=== PATIENT | male | born 1955 | race Caucasian/White ===

== ENCOUNTER 2021-12-11 15:57 | Emergency (ER) | payer MEDICAID ==
[~2021-12-11] VITALS: Ht 167.6 cm; Wt 86.2 kg
[2021-12-11 16:02] VITALS: BP 184/108
[2021-12-11 18:17] VITALS: BP 180/100
== END 2021-12-11 18:27 | disposition home or self-care (01) ==
LOC: MED 15:57
DX: Z43.3 Encounter for attention to colostomy (principal); Z98.890 Other specified postprocedural states
CPT/HCPCS: 99283

== ENCOUNTER 2022-01-25 07:55 | Emergency (ER) | payer MEDICAID ==
[~2022-01-25] VITALS: Ht 157.5 cm; Wt 82.6 kg
[~2022-01-25 07:55] MED LIST: ATOR10TA PO; HYDR-1098 PO; L. A1TAB16 PO; LACT500C2 PO; MULT-2527 PO
[2022-01-25 08:01] VITALS: BP 184/87
--- NOTE | 2022-01-25 08:24 | NUR ---
DR OSBORNE IN CHAIR FOR JAZLYNAL
--- NOTE | 2022-01-25 08:30 | NUR ---
66 Y/O C/O OF DISTENTION IN COLOSTOMY SITE IN LEFT LOWER ABD, NOTED COLOSTOMY BAG IN OPEN AND LEAKING. COLOSTOMY STOMA RED IN COLOR NKA PMH: COLOSTOMY, HTN
--- NOTE | 2022-01-25 08:31 | NUR ---
COLOSTOMY BAG CHANGED IN G[place]
[2022-01-25 08:40] VITALS: BP 152/88
--- NOTE | 2022-01-25 08:41 | NUR ---
Patient discharged with v/s stable. Written and verbal after care instructions given and explained. Patient verbalized understanding. Ambulatory with steady gait. All questions addressed prior to discharge. Advised to follow up with PMD.
== END 2022-01-25 08:41 | disposition home or self-care (01) ==
LOC: MED 07:55
DX: Z46.89 Encounter for fitting and adjustment of other specified devices (principal); I10 Essential (primary) hypertension; Z79.899 Other long term (current) drug therapy; Z90.49 Acquired absence of other specified parts of digestive tract; Z85.9 Personal history of malignant neoplasm, unspecified
CPT/HCPCS: 99281

== ENCOUNTER 2022-02-13 15:15 | Emergency (ER) | payer MEDICAID ==
[~2022-02-13] VITALS: Ht 160 cm; Wt 78.0 kg
[2022-02-13 15:27] VITALS: BP 107/56
--- NOTE | 2022-02-13 15:31 | NUR ---
PT TRANSPORTED TO BED 11 VIA [facility].
--- NOTE | 2022-02-13 15:32 | NUR ---
NOTED DARK BROWN COLORED FECAL MATTER IN PT COLOSTOMY BAG, DR RUIZ INFORMED FOR EVAL, PER PT HE HAS IRON AND THE FECES IS NORMALLY THAT COLOR
--- NOTE | 2022-02-13 15:34 | NUR ---
66 Y/O MALE BIBA FROM [facility] PER EMS FACILITY STATED THAT THE PATIENT WAS LIFTING SOMETHING YESTERDAY AND IS NOW C/O OF RIGHT KNEE PAIN. PT IS A/OX4, STATED THAT HE HAS BEEN HAVING RIGHT KNEE PAIN X2 WEEKS. AMBULATORY WITH CANE. NO SWELLING NOTED ON THE AREA, NO BRUISING. NKA PMH: LIVER CIRRHOSIS, HDL, HTN, CVA, COLOSTOMY IN PLACE
--- NOTE | 2022-02-13 15:55 | NUR ---
KANIKA MARTINEZ AT BEDSIDE
[2022-02-13] MEDS ORDERED: KETOROLAC 30 MG/ML VIAL IM ONE (16:00)
--- NOTE | 2022-02-13 16:16 | NUR ---
US AT BEDSIDE
--- NOTE | 2022-02-13 17:07 | NUR ---
PT AMBULATED TO BATHROOM WITH CANE
[2022-02-13] MEDS ORDERED: NAPR-1704 PO (17:42)
[2022-02-13 17:57] VITALS: BP 108/57
== END 2022-02-13 17:57 | disposition home or self-care (01) ==
LOC: MED 15:15
DX: S86.811A Strain of other muscle(s) and tendon(s) at lower leg level, right leg, initial encounter (principal); I10 Essential (primary) hypertension; Z86.73 Personal history of transient ischemic attack (TIA), and cerebral infarction without residual deficits; Z85.89 Personal history of malignant neoplasm of other organs and systems; Z98.890 Other specified postprocedural states; Z79.899 Other long term (current) drug therapy; X50.0XXA Overexertion from strenuous movement or load, initial encounter; Y93.89 Activity, other specified; Y92.89 Other specified places as the place of occurrence of the external cause; Y99.8 Other external cause status
CPT/HCPCS: 93971; 96372; 99284; J1885; Q0092

== ENCOUNTER 2022-02-27 09:55 | Inpatient (IN) | payer MEDICAID ==
[2022-02-27] VITALS (8 sets, daily range): BP systolic 93–155; BP diastolic 30–83
[~2022-02-27] VITALS: Ht 170.2 cm; Wt 79.4 kg
[~2022-02-27 09:55] MED LIST changes: +NAPR-1704 PO
[2022-02-27] MEDS ORDERED: PANTOPRAZOLE 40 MG INJ VIAL IVP ONE (10:35)
[2022-02-27] MEDS ORDERED: OCTREOTIDE ACETATE 1.25 MG in NACL 0.9% 250 ML IV SCH ×3 (10:35→13:45)
[2022-02-27] MEDS ORDERED: NACL 0.9% 250 ML IV ONE (10:35)
[2022-02-27] MEDS ORDERED: SUCCINYLCHOLINE CHLORIDE 200 MG/10 ML VIAL IVP ONE (11:20)
[2022-02-27] MEDS ORDERED: ETOMIDATE 20 MG/10 ML VIAL IVP ONE (11:20)
[2022-02-27 11:29] LABS: BASOPHILS # (AUTO) 0.1 K/uL (0.00-0.22); BASOPHILS % (AUTO) 0.4 % (0.0-2.0); EOSINOPHILS # (AUTO) 0.1 K/uL (0-0.4); EOSINOPHILS % (AUTO) 0.8 % (0.0-4.0); HEMATOCRIT 23.1 % (36-52); HEMOGLOBIN 7.4 g/dL (12.0-18.0); LYMPHOCYTES # (AUTO) 0.4 K/uL (2.0-11.5); LYMPHOCYTES % (AUTO) 2.2 % (20.5-51.1); MEAN CORPUSCULAR HEMOGLOBIN 29 pg (27-31); MEAN CORPUSCULAR HGB CONC 32 g/dL (33-37); MEAN CORPUSCULAR VOLUME 89.4 fL (80-94); MONOCYTES # (AUTO) 0.7 K/uL (0.8-1.0); MONOCYTES % (AUTO) 4.7 % (1.7-9.3); NEUTROPHILS # (AUTO) 14.6 K/uL (1.8-7.7); NEUTROPHILS % (AUTO) 91.9 % (42.2-75.2); PLATELET COUNT (AUTO) 581 K/uL (140-450); RED BLOOD CELL COUNT(AUTO) 2.58 MIL/uL (4.20-6.10); RED CELL DISTRIBUTION WIDTH 21.1 % (11.6-13.7); WHITE BLOOD COUNT (AUTO) 15.9 K/uL (4.8-10.8)
[2022-02-27 11:41] LABS: PROTHROMBIN TIME 10.4 secs (10.8-13.4)
[2022-02-27] MEDS ORDERED: NACL 0.9% 1,000 ML IV ONE ×2 (11:45→12:35)
[2022-02-27] MEDS ORDERED: MIDAZOLAM MDV 50 MG in NACL 0.9% 40 ML IV SCH (11:55)
[2022-02-27] MEDS ORDERED: MIDAZOLAM 5 MG/5 ML VIAL ONE (11:58)
[2022-02-27] MEDS ORDERED: MIDAZOLAM 5 MG/5 ML VIAL IV ONE (12:05)
[2022-02-27] MEDS: NOREPINEPHRINE 4 MG in DEXTROSE 5% 250 ML IV ONE ×2 (12:05→12:16)
[2022-02-27] MEDS: MIDAZOLAM MDV 100 MG in NACL 0.9% 80 ML IV PRN (12:10)
[2022-02-27 12:19] LABS: ANION GAP 36.7 (8-16); POTASSIUM 7.7 mmol/L (3.5-5.1)
[2022-02-27 12:20] LABS: CREATININE 9.6 mg/dL (0.6-1.3); TOTAL BILIRUBIN 0.3 mg/dL (0.0-1.0)
[2022-02-27 12:23] LABS: ALBUMIN 2.6 g/dL (3.4-5.0)
[2022-02-27] MEDS ORDERED: fentaNYL citrate 0.05 MG/ML VIAL ONE (12:24)
[2022-02-27] MEDS ORDERED: CALCIUM GLUC 1 GM/50 mL NS BAG 50 ML IV ONE (12:30)
[2022-02-27] MEDS ORDERED: INSULIN REGULAR, HUMAN 100 UNIT/ML VIAL IVP ONE (12:30)
[2022-02-27] MEDS ORDERED: ALBUTEROL 0.083% 2.5 MG/3 ML NEBU INH ONE (12:30)
[2022-02-27] MEDS ORDERED: fentaNYL citrate 0.05 MG/ML VIAL IVP ONE (12:30)
[2022-02-27] MEDS ORDERED: DEXTROSE 50% 50 ML SYR IVP ONE (12:30)
[2022-02-27] MEDS ORDERED: PROPOFOL 1000 MG/100 ML PREMIX 100 ML IV ONE ×2 (12:53→13:15)
[2022-02-27] MEDS ORDERED: ONDANSETRON 4 MG/2 ML VIAL IVP PRN ×2 (12:55→13:05)
[2022-02-27] MEDS ORDERED: MORPHINE SULFATE 2 MG/ML SYR IVP PRN ×2 (12:55→13:05)
[2022-02-27] MEDS ORDERED: DOCUSATE SODIUM 100 MG GELCAP PO PRN (13:05)
[2022-02-27] MEDS ORDERED: MAG SULF 2000 MG/WATER PREMIX 50 ML IV PRN (13:05)
[2022-02-27] MEDS ORDERED: ZOLPIDEM 10 MG TAB PO PRN (13:05)
[2022-02-27] MEDS ORDERED: ACETAMINOPHEN 325 MG TAB PO PRN (13:05)
[2022-02-27] MEDS ORDERED: POTASSIUM CHLORIDE 10 MEQ TABER PO PRN (13:05)
[2022-02-27] MEDS ORDERED: VANCOMYCIN PER PHARMACY MC PRN (13:20)
[2022-02-27] MEDS ORDERED: cefTRIAXone 1,000 MG VIAL ONE (13:22)
[2022-02-27] MEDS ORDERED: EPINEPHrine PFS 0.1 MG/ML SYR IVP ONE (13:25)
[2022-02-27] MEDS ORDERED: PIPERACILLIN/TAZOBACTAM 2.25 GM in DEXTROSE 5% 50 ML IV SCH (13:26)
[2022-02-27] MEDS ORDERED: PHENYLEPHRINE 10 MG in NACL 0.9% 250 ML IV PRN (13:50)
[2022-02-27] MEDS ORDERED: SODIUM BICARBONATE 8.4% PFS 50 MEQ/50 ML SYR IVP ONE (13:55)
[2022-02-27 14:06] LABS: APPEARANCE,URINE CLEAR (CLEAR); BILIRUBIN,URINE NEGATIVE (NEGATIVE); BLOOD, URINE TRACE-I (NEGATIVE); COLOR,URINE YELLOW (YELLOW); LEUKOCYTE ESTERASE ,URINE NEGATIVE (NEGATIVE); NITRITE, URINE NEGATIVE (NEGATIVE); PH,URINE 5.5 (5.0-9.0); UGLUCOSE TRACE (NEGATIVE)
[2022-02-27] MEDS ORDERED: SODIUM BICARBONATE 8.4% PFS 50 MEQ/50 ML SYR IVP SCH (14:15)
[2022-02-27] MEDS: fentaNYL citrate 1 MG in NACL 0.9% 80 ML IV PRN (14:34)
[2022-02-27] MEDS: SODIUM BICARBONATE 8.4% 150 MEQ in DEXTROSE 5% 1,000 ML IV SCH ×2 (14:44→21:57)
[2022-02-27] MEDS ORDERED: NOREPINEPHRINE 4 MG/4 ML VIAL IV ONE ×2 (14:44→17:50)
[2022-02-27 15:21] LABS: WBC,URINE 0-5 /HPF (0-5)
[2022-02-27 15:22] LABS: OTHER CASTS, URINE None Seen /LPF (None Seen)
[2022-02-27] MEDS ORDERED: VANCOMYCIN 1,000 MG in DEXTROSE 5% 250 ML IV SCH (15:30)
[2022-02-27] MEDS ORDERED: VANCOMYCIN 1,000 MG VIAL ONE (16:11)
[2022-02-27 17:51] LABS: BASOPHILS % (AUTO) 0.2 % (0.0-2.0); EOSINOPHILS # (AUTO) 0.1 K/uL (0-0.4); LYMPHOCYTES # (AUTO) 0.3 K/uL (2.0-11.5); LYMPHOCYTES % (AUTO) 2.1 % (20.5-51.1); MEAN CORPUSCULAR HEMOGLOBIN 28 pg (27-31); MEAN CORPUSCULAR HGB CONC 32 g/dL (33-37); MEAN CORPUSCULAR VOLUME 88.6 fL (80-94); MONOCYTES # (AUTO) 0.6 K/uL (0.8-1.0); MONOCYTES % (AUTO) 4.3 % (1.7-9.3); NEUTROPHILS # (AUTO) 12.8 K/uL (1.8-7.7); NEUTROPHILS % (AUTO) 92.4 % (42.2-75.2); PLATELET COUNT (AUTO) 493 K/uL (140-450); RED BLOOD CELL COUNT(AUTO) 2.14 MIL/uL (4.20-6.10); RED CELL DISTRIBUTION WIDTH 21.2 % (11.6-13.7); WHITE BLOOD COUNT (AUTO) 13.8 K/uL (4.8-10.8)
[2022-02-27 17:57] LABS: HEMATOCRIT 18.9 % (36-52)
[2022-02-27] MEDS: NOREPINEPHRINE 16 MG in DEXTROSE 5% 250 ML IV PRN (18:15)
[2022-02-27] MEDS: PHENYLEPHRINE 40 MG in NACL 0.9% 250 ML IV PRN (18:25)
[2022-02-27 19:42] LABS: ALBUMIN 2.6 g/dL (3.4-5.0); BILIRUBIN,DIRECT 0.1 mg/dL (0.0-0.3); TOTAL BILIRUBIN 0.4 mg/dL (0.0-1.0)
[2022-02-27] MEDS: PIPERACILLIN/TAZOBACTAM 2.25 GM in DEXTROSE 5% 50 ML IV SCH (21:58)
[2022-02-28] VITALS (21 sets, daily range): BP systolic 70–160; BP diastolic 38–100
[2022-02-28] MEDS: ACETAMINOPHEN 325 MG TAB PO PRN ×3 (00:18→17:43)
[2022-02-28 01:06] LABS: BASOPHILS % (AUTO) 0.3 % (0.0-2.0); EOSINOPHILS # (AUTO) 0.7 K/uL (0-0.4); EOSINOPHILS % (AUTO) 5.6 % (0.0-4.0); HEMATOCRIT 27.5 % (36-52); HEMOGLOBIN 9.5 g/dL (12.0-18.0); LYMPHOCYTES # (AUTO) 0.7 K/uL (2.0-11.5); LYMPHOCYTES % (AUTO) 5.3 % (20.5-51.1); MEAN CORPUSCULAR HEMOGLOBIN 28 pg (27-31); MEAN CORPUSCULAR HGB CONC 35 g/dL (33-37); MONOCYTES # (AUTO) 0.5 K/uL (0.8-1.0); MONOCYTES % (AUTO) 3.8 % (1.7-9.3); NEUTROPHILS # (AUTO) 10.9 K/uL (1.8-7.7); PLATELET COUNT (AUTO) 430 K/uL (140-450); RED BLOOD CELL COUNT(AUTO) 3.36 MIL/uL (4.20-6.10); WHITE BLOOD COUNT (AUTO) 12.8 K/uL (4.8-10.8)
[2022-02-28] MEDS: NOREPINEPHRINE 16 MG in DEXTROSE 5% 250 ML IV PRN ×2 (02:02→15:25)
[2022-02-28] MEDS: fentaNYL citrate 1 MG in NACL 0.9% 80 ML IV PRN ×2 (04:52→13:46)
[2022-02-28] MEDS: PIPERACILLIN/TAZOBACTAM 2.25 GM in DEXTROSE 5% 50 ML IV SCH ×3 (05:11→21:00)
[2022-02-28 05:42] LABS: BASOPHILS % (AUTO) 0.2 % (0.0-2.0); EOSINOPHILS # (AUTO) 0.3 K/uL (0-0.4); EOSINOPHILS % (AUTO) 2.4 % (0.0-4.0); HEMATOCRIT 25.2 % (36-52); HEMOGLOBIN 8.6 g/dL (12.0-18.0); LYMPHOCYTES # (AUTO) 0.5 K/uL (2.0-11.5); LYMPHOCYTES % (AUTO) 3.6 % (20.5-51.1); MEAN CORPUSCULAR HEMOGLOBIN 28 pg (27-31); MEAN CORPUSCULAR HGB CONC 34 g/dL (33-37); MEAN CORPUSCULAR VOLUME 80.9 fL (80-94); MONOCYTES # (AUTO) 0.8 K/uL (0.8-1.0); MONOCYTES % (AUTO) 6.2 % (1.7-9.3); NEUTROPHILS # (AUTO) 11.6 K/uL (1.8-7.7); NEUTROPHILS % (AUTO) 87.6 % (42.2-75.2); PLATELET COUNT (AUTO) 425 K/uL (140-450); RED BLOOD CELL COUNT(AUTO) 3.12 MIL/uL (4.20-6.10); RED CELL DISTRIBUTION WIDTH 18.4 % (11.6-13.7); WHITE BLOOD COUNT (AUTO) 13.3 K/uL (4.8-10.8)
[2022-02-28] MEDS: PHENYLEPHRINE 40 MG in NACL 0.9% 250 ML IV PRN (06:46)
[2022-02-28 06:51] LABS: ANION GAP 15.9 (8-16); CARBON DIOXIDE 28.9 mmol/L (21-32); CREATININE 2.9 mg/dL (0.6-1.3)
[2022-02-28 07:11] LABS: POTASSIUM 2.8 mmol/L (3.5-5.1)
[2022-02-28] MEDS: SODIUM BICARBONATE 8.4% 150 MEQ in DEXTROSE 5% 1,000 ML IV SCH (07:15)
[2022-02-28] MEDS ORDERED: KCL 20 MEQ/WATER INJ PREMIX 200 ML IV SCH (08:00)
[2022-02-28] MEDS: PANTOPRAZOLE 40 MG INJ VIAL IVP SCH ×4 (08:01→21:00)
[2022-02-28] MEDS: MIDAZOLAM MDV 100 MG in NACL 0.9% 80 ML IV PRN (08:03)
[2022-02-28] MEDS: DEXT 5% /NACL 0.9% 1,000 ML IV SCH (10:56)
[2022-02-28 14:19] LABS: ANION GAP 9.5 (8-16); CARBON DIOXIDE 33.1 mmol/L (21-32); CREATININE 2.3 mg/dL (0.6-1.3); POTASSIUM 3.6 mmol/L (3.5-5.1)
[2022-02-28] MEDS: DEXAMETHASONE 10 MG/ML VIAL IVP SCH (20:36)
[2022-03-01] VITALS (26 sets, daily range): BP systolic 91–166; BP diastolic 45–98
[2022-03-01] MEDS: DEXT 5% /NACL 0.9% 1,000 ML IV SCH ×4 (01:00→22:59)
[2022-03-01] MEDS: fentaNYL citrate 1 MG in NACL 0.9% 80 ML IV PRN ×2 (03:38→23:03)
[2022-03-01] MEDS: PIPERACILLIN/TAZOBACTAM 2.25 GM in DEXTROSE 5% 50 ML IV SCH ×3 (04:59→21:07)
[2022-03-01 05:42] LABS: BASOPHILS # (AUTO) 0.1 K/uL (0.00-0.22); BASOPHILS % (AUTO) 0.5 % (0.0-2.0); EOSINOPHILS # (AUTO) 0.3 K/uL (0-0.4); EOSINOPHILS % (AUTO) 2.5 % (0.0-4.0); HEMOGLOBIN 8.6 g/dL (12.0-18.0); LYMPHOCYTES # (AUTO) 0.2 K/uL (2.0-11.5); LYMPHOCYTES % (AUTO) 1.9 % (20.5-51.1); MEAN CORPUSCULAR HEMOGLOBIN 29 pg (27-31); MEAN CORPUSCULAR HGB CONC 35 g/dL (33-37); MEAN CORPUSCULAR VOLUME 82.8 fL (80-94); MONOCYTES # (AUTO) 0.1 K/uL (0.8-1.0); NEUTROPHILS # (AUTO) 10.7 K/uL (1.8-7.7); NEUTROPHILS % (AUTO) 94.1 % (42.2-75.2); PLATELET COUNT (AUTO) 408 K/uL (140-450); RED BLOOD CELL COUNT(AUTO) 3.01 MIL/uL (4.20-6.10); RED CELL DISTRIBUTION WIDTH 18.2 % (11.6-13.7); WHITE BLOOD COUNT (AUTO) 11.4 K/uL (4.8-10.8)
[2022-03-01 05:59] LABS: ANION GAP 10.1 (8-16); CARBON DIOXIDE 29.4 mmol/L (21-32); CREATININE 1.9 mg/dL (0.6-1.3); POTASSIUM 3.5 mmol/L (3.5-5.1)
[2022-03-01] MEDS ORDERED: VANCOMYCIN 1,000 MG in DEXTROSE 5% 250 ML IV SCH (08:00)
[2022-03-01] MEDS: PANTOPRAZOLE 40 MG INJ VIAL IVP SCH ×2 (08:17→21:07)
[2022-03-01] MEDS: DEXAMETHASONE 10 MG/ML VIAL IVP SCH (08:18)
[2022-03-01] MEDS ORDERED: DEXTROSE 50% 50 ML SYR IVP PRN (10:20)
[2022-03-01] MEDS: INSULIN LISPRO SLIDING SCALE 100 UNITS/ML VIAL SUBQ PRN ×2 (10:40→17:29)
[2022-03-01] MEDS: MIDAZOLAM MDV 100 MG in NACL 0.9% 80 ML IV PRN (10:45)
[2022-03-01] MEDS ORDERED: BLOOD GLUCOSE MONITORING 1 DEV DEV FS SCH (11:30)
[2022-03-01] MEDS: NOREPINEPHRINE 16 MG in DEXTROSE 5% 250 ML IV PRN (12:02)
[2022-03-01 12:08] LABS: HEPATITIS A ANTIBODY IGM Negative (Negative); HEPATITIS B CORE AB TOTAL Negative (Negative); HEPATITIS B SURFACE ANTIBODY Non Reactive (.); HEPATITIS B SURFACE ANTIGEN Negative (Negative)
[2022-03-01] MEDS: BLOOD GLUCOSE MONITORING 1 DEV DEV FS SCH ×2 (17:28→23:27)
[2022-03-02] VITALS (33 sets, daily range): BP systolic 94–156; BP diastolic 47–80
[2022-03-02] MEDS: PIPERACILLIN/TAZOBACTAM 2.25 GM in DEXTROSE 5% 50 ML IV SCH ×3 (06:35→20:58)
[2022-03-02] MEDS: BLOOD GLUCOSE MONITORING 1 DEV DEV FS SCH ×4 (06:35→23:55)
[2022-03-02 07:05] LABS: BASOPHILS # (AUTO) 0.1 K/uL (0.00-0.22); BASOPHILS % (AUTO) 0.7 % (0.0-2.0); EOSINOPHILS # (AUTO) 0.7 K/uL (0-0.4); EOSINOPHILS % (AUTO) 4.5 % (0.0-4.0); HEMOGLOBIN 7.4 g/dL (12.0-18.0); LYMPHOCYTES # (AUTO) 0.5 K/uL (2.0-11.5); LYMPHOCYTES % (AUTO) 3.2 % (20.5-51.1); MEAN CORPUSCULAR HEMOGLOBIN 29 pg (27-31); MEAN CORPUSCULAR HGB CONC 35 g/dL (33-37); MEAN CORPUSCULAR VOLUME 83.3 fL (80-94); MONOCYTES # (AUTO) 0.4 K/uL (0.8-1.0); MONOCYTES % (AUTO) 2.6 % (1.7-9.3); NEUTROPHILS # (AUTO) 13.6 K/uL (1.8-7.7); PLATELET COUNT (AUTO) 380 K/uL (140-450); RED BLOOD CELL COUNT(AUTO) 2.52 MIL/uL (4.20-6.10); RED CELL DISTRIBUTION WIDTH 18.9 % (11.6-13.7); WHITE BLOOD COUNT (AUTO) 15.3 K/uL (4.8-10.8)
[2022-03-02 08:07] LABS: ANION GAP 8.8 (8-16); CARBON DIOXIDE 29.5 mmol/L (21-32); CREATININE 1.3 mg/dL (0.6-1.3); POTASSIUM 3.3 mmol/L (3.5-5.1)
[2022-03-02] MEDS: DEXAMETHASONE 10 MG/ML VIAL IVP SCH (08:41)
[2022-03-02] MEDS: PANTOPRAZOLE 40 MG INJ VIAL IVP SCH ×2 (08:41→20:58)
[2022-03-02] MEDS: MIDAZOLAM MDV 100 MG in NACL 0.9% 80 ML IV PRN (09:00)
[2022-03-02] MEDS: VANCOMYCIN HCL 1.25 GM in DEXTROSE 5% 250 ML IV SCH (10:09)
[2022-03-02] MEDS ORDERED: KCL 20 MEQ/WATER INJ PREMIX 100 ML IV SCH (11:00)
[2022-03-02] MEDS: INSULIN LISPRO SLIDING SCALE 100 UNITS/ML VIAL SUBQ PRN ×2 (11:26→18:24)
[2022-03-02] MEDS: DEXT 5% /NACL 0.9% 1,000 ML IV SCH (11:36)
[2022-03-02] MEDS: POTASSIUM CHL 20 MEQ / DEXT 5% 1,000 ML IV SCH (14:38)
[2022-03-03] VITALS (34 sets, daily range): BP systolic 99–170; BP diastolic 59–84
[2022-03-03] MEDS: POTASSIUM CHL 20 MEQ / DEXT 5% 1,000 ML IV SCH ×3 (01:12→21:36)
[2022-03-03] MEDS: BLOOD GLUCOSE MONITORING 1 DEV DEV FS SCH ×3 (06:00→18:10)
[2022-03-03] MEDS: MIDAZOLAM MDV 100 MG in NACL 0.9% 80 ML IV PRN (06:03)
[2022-03-03] MEDS: PIPERACILLIN/TAZOBACTAM 2.25 GM in DEXTROSE 5% 50 ML IV SCH ×3 (06:04→21:36)
[2022-03-03 07:15] LABS: BASOPHILS % (AUTO) 0.1 % (0.0-2.0); EOSINOPHILS # (AUTO) 0.4 K/uL (0-0.4); EOSINOPHILS % (AUTO) 2.4 % (0.0-4.0); HEMATOCRIT 22.7 % (36-52); HEMOGLOBIN 7.6 g/dL (12.0-18.0); LYMPHOCYTES % (AUTO) 6.3 % (20.5-51.1); MEAN CORPUSCULAR HEMOGLOBIN 29 pg (27-31); MEAN CORPUSCULAR HGB CONC 34 g/dL (33-37); MEAN CORPUSCULAR VOLUME 84.9 fL (80-94); MONOCYTES # (AUTO) 0.6 K/uL (0.8-1.0); MONOCYTES % (AUTO) 3.5 % (1.7-9.3); NEUTROPHILS # (AUTO) 14.4 K/uL (1.8-7.7); NEUTROPHILS % (AUTO) 87.7 % (42.2-75.2); PLATELET COUNT (AUTO) 374 K/uL (140-450); RED BLOOD CELL COUNT(AUTO) 2.67 MIL/uL (4.20-6.10); RED CELL DISTRIBUTION WIDTH 18.4 % (11.6-13.7); WHITE BLOOD COUNT (AUTO) 16.4 K/uL (4.8-10.8)
[2022-03-03 07:31] LABS: ANION GAP 9.2 (8-16); CARBON DIOXIDE 29.4 mmol/L (21-32); CREATININE 1.2 mg/dL (0.6-1.3); POTASSIUM 3.6 mmol/L (3.5-5.1)
[2022-03-03] MEDS: PANTOPRAZOLE 40 MG INJ VIAL IVP SCH ×2 (08:09→21:37)
[2022-03-03] MEDS: DEXAMETHASONE 10 MG/ML VIAL IVP SCH (08:09)
[2022-03-03] MEDS: VANCOMYCIN HCL 1.25 GM in DEXTROSE 5% 250 ML IV SCH (11:46)
[2022-03-03] MEDS: INSULIN LISPRO SLIDING SCALE 100 UNITS/ML VIAL SUBQ PRN ×2 (12:10→18:17)
[2022-03-03] MEDS: ALBUTEROL SULFATE/IPRATROPIU 3 ML SOL IH PRN ×2 (16:08→16:09)
[2022-03-03] MEDS ORDERED: hydrALAZINE 20 MG/ML VIAL ONE (16:29)
[2022-03-03] MEDS: hydrALAZINE 20 MG/ML VIAL IVP PRN (17:00)
[2022-03-04] VITALS (34 sets, daily range): BP systolic 106–180; BP diastolic 63–101
[2022-03-04] MEDS: MIDAZOLAM MDV 100 MG in NACL 0.9% 80 ML IV PRN (00:51)
[2022-03-04] MEDS: BLOOD GLUCOSE MONITORING 1 DEV DEV FS SCH ×4 (00:57→18:35)
[2022-03-04] MEDS: PIPERACILLIN/TAZOBACTAM 2.25 GM in DEXTROSE 5% 50 ML IV SCH (05:00)
[2022-03-04 06:15] LABS: HEMATOCRIT 20.5 % (36-52); MEAN CORPUSCULAR HEMOGLOBIN 28 pg (27-31); MEAN CORPUSCULAR HGB CONC 33 g/dL (33-37); MEAN CORPUSCULAR VOLUME 84.1 fL (80-94); PLATELET COUNT (AUTO) 324 K/uL (140-450); RED BLOOD CELL COUNT(AUTO) 2.44 MIL/uL (4.20-6.10); RED CELL DISTRIBUTION WIDTH 18.5 % (11.6-13.7)
[2022-03-04 06:22] LABS: ANION GAP 9.4 (8-16); CARBON DIOXIDE 25.2 mmol/L (21-32); CREATININE 0.9 mg/dL (0.6-1.3); POTASSIUM 3.6 mmol/L (3.5-5.1)
[2022-03-04 06:38] LABS: HEMOGLOBIN 6.8 g/dL (12.0-18.0)
[2022-03-04] MEDS: POTASSIUM CHL 20 MEQ / DEXT 5% 1,000 ML IV SCH ×2 (06:45→15:58)
[2022-03-04 06:55] LABS: EOSINOPHILS % (MANUAL) 3 % (0-4); LYMPHOCYTES % (MANUAL) 5 % (20-46); MONOCYTES % (MANUAL) 5 % (5-12)
[2022-03-04] MEDS: ALBUTEROL SULFATE/IPRATROPIU 3 ML SOL IH PRN ×2 (07:41→14:45)
[2022-03-04] MEDS: DEXAMETHASONE 10 MG/ML VIAL IVP SCH (09:35)
[2022-03-04] MEDS: PANTOPRAZOLE 40 MG INJ VIAL IVP SCH ×2 (09:35→21:35)
[2022-03-04] MEDS: cefTRIAXone 2,000 MG in DEXTROSE 5% 100 ML IV SCH (12:13)
[2022-03-04] MEDS: LACTULOSE 20 GM/30 ML UDC GT SCH ×2 (12:25→17:00)
[2022-03-04] MEDS: DEXMEDETOMIDINE HCL 400 MCG in NACL 0.9% 96 ML IV PRN ×2 (15:55→22:20)
[2022-03-04] MEDS: INSULIN LISPRO SLIDING SCALE 100 UNITS/ML VIAL SUBQ PRN (18:33)
[2022-03-04] MEDS: BOWEL EVACUANT DRINK 4,000 ML PDS PO SCH ×2 (21:56→21:59)
[2022-03-04] MEDS ORDERED: MAGNESIUM CITRATE 300 ML BTL PO SCH (22:00)
[2022-03-04] MEDS ORDERED: DEXMEDETOMIDINE HCL 100 MCG/ML 2 ML VIAL IV ONE (22:11)
[2022-03-04] MEDS: hydrALAZINE 20 MG/ML VIAL IVP PRN (22:21)
[2022-03-05] VITALS (27 sets, daily range): BP systolic 119–177; BP diastolic 62–94
[2022-03-05] MEDS: BOWEL EVACUANT DRINK 4,000 ML PDS PO SCH ×5 (00:46→08:00)
[2022-03-05] MEDS: POTASSIUM CHL 20 MEQ / DEXT 5% 1,000 ML IV SCH ×3 (00:46→21:09)
[2022-03-05] MEDS: BLOOD GLUCOSE MONITORING 1 DEV DEV FS SCH ×4 (00:52→17:51)
[2022-03-05] MEDS: DEXMEDETOMIDINE HCL 400 MCG in NACL 0.9% 96 ML IV PRN (02:48)
[2022-03-05] MEDS: hydrALAZINE 20 MG/ML VIAL IVP PRN (05:56)
[2022-03-05 08:25] LABS: BASOPHILS % (AUTO) 0.1 % (0.0-2.0); EOSINOPHILS # (AUTO) 0.5 K/uL (0-0.4); HEMOGLOBIN 8.7 g/dL (12.0-18.0); LYMPHOCYTES # (AUTO) 0.8 K/uL (2.0-11.5); LYMPHOCYTES % (AUTO) 6.8 % (20.5-51.1); MEAN CORPUSCULAR HEMOGLOBIN 28 pg (27-31); MEAN CORPUSCULAR HGB CONC 33 g/dL (33-37); MEAN CORPUSCULAR VOLUME 84.8 fL (80-94); MONOCYTES # (AUTO) 0.7 K/uL (0.8-1.0); MONOCYTES % (AUTO) 6.1 % (1.7-9.3); NEUTROPHILS # (AUTO) 9.8 K/uL (1.8-7.7); PLATELET COUNT (AUTO) 311 K/uL (140-450); RED BLOOD CELL COUNT(AUTO) 3.07 MIL/uL (4.20-6.10); RED CELL DISTRIBUTION WIDTH 18.9 % (11.6-13.7); WHITE BLOOD COUNT (AUTO) 11.9 K/uL (4.8-10.8)
[2022-03-05 08:33] LABS: ALBUMIN 1.8 g/dL (3.4-5.0); ANION GAP 9.2 (8-16); CARBON DIOXIDE 24.7 mmol/L (21-32); CREATININE 0.8 mg/dL (0.6-1.3); POTASSIUM 3.9 mmol/L (3.5-5.1); TOTAL BILIRUBIN 0.3 mg/dL (0.0-1.0)
[2022-03-05] MEDS ORDERED: DEXMEDETOMIDINE HCL 100 MCG/ML 2 ML VIAL IV ONE ×2 (08:58→08:59)
[2022-03-05] MEDS ORDERED: fentaNYL citrate 0.05 MG/ML VIAL ONE (09:41)
[2022-03-05] MEDS ORDERED: MIDAZOLAM 2 MG/2 ML VIAL ONE ×2 (09:41→09:42)
[2022-03-05] MEDS: LACTULOSE 20 GM/30 ML UDC GT SCH ×3 (09:45→17:00)
[2022-03-05] MEDS: PANTOPRAZOLE 40 MG INJ VIAL IVP SCH ×2 (09:45→21:05)
[2022-03-05] MEDS: DEXAMETHASONE 10 MG/ML VIAL IVP SCH (09:45)
[2022-03-05] MEDS ORDERED: fentaNYL citrate 0.05 MG/ML VIAL IVP ONE (11:10)
[2022-03-05] MEDS ORDERED: MIDAZOLAM 2 MG/2 ML VIAL IVP ONE (11:10)
[2022-03-05] MEDS: cefTRIAXone 2,000 MG in DEXTROSE 5% 100 ML IV SCH (12:54)
[2022-03-05] MEDS: INSULIN LISPRO SLIDING SCALE 100 UNITS/ML VIAL SUBQ PRN (17:52)
[2022-03-06] VITALS (17 sets, daily range): BP systolic 143–177; BP diastolic 72–84
[2022-03-06] MEDS: BLOOD GLUCOSE MONITORING 1 DEV DEV FS SCH ×4 (06:00→17:18)
[2022-03-06] MEDS: POTASSIUM CHL 20 MEQ / DEXT 5% 1,000 ML IV SCH (07:30)
[2022-03-06 08:04] LABS: BASOPHILS % (AUTO) 0.1 % (0.0-2.0); EOSINOPHILS # (AUTO) 0.6 K/uL (0-0.4); HEMATOCRIT 31.9 % (36-52); HEMOGLOBIN 9.8 g/dL (12.0-18.0); LYMPHOCYTES # (AUTO) 1.3 K/uL (2.0-11.5); LYMPHOCYTES % (AUTO) 8.1 % (20.5-51.1); MEAN CORPUSCULAR HEMOGLOBIN 28 pg (27-31); MEAN CORPUSCULAR HGB CONC 31 g/dL (33-37); MEAN CORPUSCULAR VOLUME 90.2 fL (80-94); MONOCYTES # (AUTO) 0.5 K/uL (0.8-1.0); MONOCYTES % (AUTO) 3.2 % (1.7-9.3); NEUTROPHILS # (AUTO) 13.7 K/uL (1.8-7.7); NEUTROPHILS % (AUTO) 84.6 % (42.2-75.2); PLATELET COUNT (AUTO) 288 K/uL (140-450); RED BLOOD CELL COUNT(AUTO) 3.54 MIL/uL (4.20-6.10); RED CELL DISTRIBUTION WIDTH 18.7 % (11.6-13.7); WHITE BLOOD COUNT (AUTO) 16.2 K/uL (4.8-10.8)
[2022-03-06 08:08] LABS: ANION GAP 9.2 (8-16); CARBON DIOXIDE 24.2 mmol/L (21-32); CREATININE 0.9 mg/dL (0.6-1.3); POTASSIUM 4.4 mmol/L (3.5-5.1)
[2022-03-06] MEDS: PANTOPRAZOLE 40 MG INJ VIAL IVP SCH ×2 (08:39→21:52)
[2022-03-06] MEDS: DEXAMETHASONE 10 MG/ML VIAL IVP SCH (08:39)
[2022-03-06] MEDS: LACTULOSE 20 GM/30 ML UDC GT SCH ×3 (10:20→16:57)
[2022-03-06] MEDS: NACL 0.9% 1,000 ML IV SCH ×2 (10:20→21:52)
[2022-03-06] MEDS: cefTRIAXone 2,000 MG in DEXTROSE 5% 100 ML IV SCH (11:20)
[2022-03-06] MEDS: hydrALAZINE 20 MG/ML VIAL IVP PRN (17:20)
[2022-03-07] VITALS (13 sets, daily range): BP systolic 103–178; BP diastolic 61–98
[2022-03-07] MEDS: hydrALAZINE 20 MG/ML VIAL IVP PRN ×2 (01:10→16:47)
[2022-03-07] MEDS: NACL 0.9% 1,000 ML IV SCH ×2 (06:42→16:15)
[2022-03-07] MEDS: BLOOD GLUCOSE MONITORING 1 DEV DEV FS SCH ×5 (06:50→21:26)
[2022-03-07 06:52] LABS: BASOPHILS % (AUTO) 0.2 % (0.0-2.0); EOSINOPHILS # (AUTO) 0.6 K/uL (0-0.4); EOSINOPHILS % (AUTO) 4.6 % (0.0-4.0); HEMATOCRIT 29.1 % (36-52); HEMOGLOBIN 9.9 g/dL (12.0-18.0); LYMPHOCYTES # (AUTO) 1.4 K/uL (2.0-11.5); LYMPHOCYTES % (AUTO) 10.5 % (20.5-51.1); MEAN CORPUSCULAR HEMOGLOBIN 29 pg (27-31); MEAN CORPUSCULAR HGB CONC 34 g/dL (33-37); MEAN CORPUSCULAR VOLUME 85.8 fL (80-94); MONOCYTES # (AUTO) 0.5 K/uL (0.8-1.0); MONOCYTES % (AUTO) 3.9 % (1.7-9.3); NEUTROPHILS # (AUTO) 10.9 K/uL (1.8-7.7); NEUTROPHILS % (AUTO) 80.8 % (42.2-75.2); PLATELET COUNT (AUTO) 345 K/uL (140-450); RED BLOOD CELL COUNT(AUTO) 3.39 MIL/uL (4.20-6.10); RED CELL DISTRIBUTION WIDTH 18.7 % (11.6-13.7); WHITE BLOOD COUNT (AUTO) 13.5 K/uL (4.8-10.8)
[2022-03-07 07:10] LABS: ANION GAP 11.7 (8-16); POTASSIUM 3.7 mmol/L (3.5-5.1)
[2022-03-07] MEDS: LACTULOSE 20 GM/30 ML UDC GT SCH (08:42)
[2022-03-07] MEDS: PANTOPRAZOLE 40 MG INJ VIAL IVP SCH ×2 (08:42→21:21)
[2022-03-07] MEDS: DEXAMETHASONE 10 MG/ML VIAL IVP SCH (08:42)
[2022-03-07] MEDS ORDERED: ZOLPIDEM 5 MG TAB PO PRN (09:00)
[2022-03-07] MEDS: cefTRIAXone 2,000 MG in DEXTROSE 5% 100 ML IV SCH (11:37)
[2022-03-08] VITALS (7 sets, daily range): BP systolic 119–154; BP diastolic 68–87
[2022-03-08] MEDS: NACL 0.9% 1,000 ML IV SCH (01:51)
[2022-03-08] MEDS: BLOOD GLUCOSE MONITORING 1 DEV DEV FS SCH ×4 (07:21→20:58)
[2022-03-08] MEDS: PANTOPRAZOLE 40 MG INJ VIAL IVP SCH ×2 (09:00→20:42)
[2022-03-08] MEDS: cefTRIAXone 2,000 MG in DEXTROSE 5% 100 ML IV SCH (11:57)
[2022-03-09] MEDS: BLOOD GLUCOSE MONITORING 1 DEV DEV FS SCH ×4 (06:50→20:37)
[2022-03-09 07:11] LABS: ANION GAP 12.6 (8-16); CARBON DIOXIDE 23.1 mmol/L (21-32); MAGNESIUM 1.5 mg/dL (1.8-2.4); PHOSPHORUS 3.2 mg/dL (2.5-4.9); POTASSIUM 3.7 mmol/L (3.5-5.1); TOTAL BILIRUBIN 0.4 mg/dL (0.0-1.0)
[2022-03-09 07:13] LABS: BASOPHILS % (AUTO) 0.3 % (0.0-2.0); EOSINOPHILS # (AUTO) 1.5 K/uL (0-0.4); HEMATOCRIT 27.9 % (36-52); HEMOGLOBIN 9.2 g/dL (12.0-18.0); LYMPHOCYTES # (AUTO) 0.9 K/uL (2.0-11.5); LYMPHOCYTES % (AUTO) 7.5 % (20.5-51.1); MEAN CORPUSCULAR HEMOGLOBIN 29 pg (27-31); MEAN CORPUSCULAR HGB CONC 33 g/dL (33-37); MEAN CORPUSCULAR VOLUME 86.2 fL (80-94); MONOCYTES # (AUTO) 0.8 K/uL (0.8-1.0); MONOCYTES % (AUTO) 6.4 % (1.7-9.3); NEUTROPHILS % (AUTO) 73.8 % (42.2-75.2); PLATELET COUNT (AUTO) 322 K/uL (140-450); RED BLOOD CELL COUNT(AUTO) 3.23 MIL/uL (4.20-6.10); RED CELL DISTRIBUTION WIDTH 18.8 % (11.6-13.7); WHITE BLOOD COUNT (AUTO) 12.3 K/uL (4.8-10.8)
[2022-03-09 08:00] VITALS: BP 122/66
[2022-03-09] MEDS: PANTOPRAZOLE 40 MG INJ VIAL IVP SCH ×2 (08:16→21:34)
[2022-03-09] MEDS: cefTRIAXone 2,000 MG in DEXTROSE 5% 100 ML IV SCH (12:20)
[2022-03-09] MEDS ORDERED: DOCU-299 PO (12:40)
[2022-03-09] MEDS ORDERED: ATOR10TA PO (12:40)
[2022-03-09] MEDS ORDERED: ACET-1182 PO (12:40)
[2022-03-09] MEDS ORDERED: HUMSLIDE SUBQ (12:40)
[2022-03-09] MEDS ORDERED: LEVO750T75 PO (12:40)
[2022-03-09] MEDS ORDERED: ALBU3SOL83 IH (12:40)
[2022-03-09] MEDS ORDERED: GLUC-805 FS (12:40)
[2022-03-09 16:00] VITALS: BP_SYST 115; BP_SYST 134; BP_DIAS 70; BP_DIAS 76
[2022-03-09] MEDS: INSULIN LISPRO SLIDING SCALE 100 UNITS/ML VIAL SUBQ PRN (17:31)
[2022-03-09 20:00] VITALS: BP 136/72
[2022-03-10 04:00] VITALS: BP 137/71
[2022-03-10] MEDS: BLOOD GLUCOSE MONITORING 1 DEV DEV FS SCH ×3 (06:59→17:23)
[2022-03-10] MEDS: PANTOPRAZOLE 40 MG INJ VIAL IVP SCH (09:12)
[2022-03-10 12:44] VITALS: BP 147/78
[2022-03-10] MEDS: cefTRIAXone 2,000 MG in DEXTROSE 5% 100 ML IV SCH (13:09)
== END 2022-03-10 19:10 | DRG 720 ==
LOC: MED 09:55 → MTU 12:56 → MIC 15:49 → MTU 03-07 13:14
PROVIDERS: ADMIT Family Medicine; ATTEND Family Medicine
PROC: 5A1955Z Respiratory Ventilation, Greater than 96 Consecutive Hours (ICD-10-PCS; principal; 2022-02-27)
PROC: 0BH17EZ Insertion of Endotracheal Airway into Trachea, Via Natural or Artificial Opening (ICD-10-PCS; 2022-02-27)
PROC: 5A1D70Z Performance of Urinary Filtration, Intermittent, Less than 6 Hours Per Day (ICD-10-PCS; 2022-02-27)
PROC: 06HY33Z Insertion of Infusion Device into Lower Vein, Percutaneous Approach (ICD-10-PCS; 2022-02-27)
PROC: B54BZZA Ultrasonography of Right Lower Extremity Veins, Guidance (ICD-10-PCS; 2022-02-27)
PROC: 02HV33Z Insertion of Infusion Device into Superior Vena Cava, Percutaneous Approach (ICD-10-PCS; 2022-02-27)
PROC: B548ZZA Ultrasonography of Superior Vena Cava, Guidance (ICD-10-PCS; 2022-02-27)
PROC: 30233N1 Transfusion of Nonautologous Red Blood Cells into Peripheral Vein, Percutaneous Approach (ICD-10-PCS; 2022-02-27)
PROC: 0DBF8ZZ Excision of Right Large Intestine, Via Natural or Artificial Opening Endoscopic (ICD-10-PCS; 2022-03-05)
DX: A41.9 Sepsis, unspecified organism (principal); N17.0 Acute kidney failure with tubular necrosis; J96.01 Acute respiratory failure with hypoxia; J69.0 Pneumonitis due to inhalation of food and vomit; R65.21 Severe sepsis with septic shock; G93.41 Metabolic encephalopathy; E44.0 Moderate protein-calorie malnutrition; K57.31 Diverticulosis of large intestine without perforation or abscess with bleeding; U07.1 COVID-19; K74.60 Unspecified cirrhosis of liver; B15.9 Hepatitis A without hepatic coma; E87.6 Hypokalemia; E87.2 Acidosis; D64.9 Anemia, unspecified; N18.9 Chronic kidney disease, unspecified; E87.5 Hyperkalemia; E78.5 Hyperlipidemia, unspecified; Z93.3 Colostomy status; Z86.73 Personal history of transient ischemic attack (TIA), and cerebral infarction without residual deficits; Z68.27 Body mass index [BMI] 27.0-27.9, adult
CPT/HCPCS: 31500; 36415; 36556; 36600; 44388; 71045; 76700; 80048; 80053; 80076; 80202; 81001; 82140; 82550; 82803; 82948; 83605; 83735; 83880; 84100; 84484; 85025; 85610; 85730; 86704; 86706; 86708; 86709; 86803; 86886; 86900; 86901; 86920; 87040; 87070; 87081; 87086; 87186; 87205; 87340; 92610; 93005; 94002; 94003; 94640; 94644; 96365; 96375; 97112; 97116; 97163-GP; 97530; 99291; C9113; J0330; J0360; J0610; J0696; J1100; J1644; J1815; J2250; J2354; J2370; J2543; J2704; J3010; J3370; J3475; J3480; J3490; J7030; J7060; J7070; J7613; P9016; Q0092